=== PATIENT | male | born 1955 | race Caucasian/White ===

== ENCOUNTER → 2020-08-13 | Outpatient (CLI) | payer OTHER ==
[~2020-08-13] MED LIST: ASPIRIN EC325 M1 PO; PRINIVIL20 MG PO; SIMVASTATIN40 MG PO; SYNTHROID50 MCG PO
[2020-08-13 08:36] LABS: CREATININE 1.2 mg/dL (0.7-1.3)
== END ==
LOC: CAT 07:57
PROVIDERS: ATTEND Surgery Vascular Surgery
DX: I65.29 Occlusion and stenosis of unspecified carotid artery (principal)

== ENCOUNTER → 2020-09-26 | Outpatient (CLI) | payer OTHER ==
[~2020-09-26] MED LIST changes: +AVAPRO 150 MG150 M1 PO; +CARVEDILOL12.5 MG PO; +IMBRUVICA140 MG PO; +PLAVIX 75 MG TA75 MG PO; +ROSUVASTATIN CA40 MG PO
== END ==
LOC: SJCVCIMAG 09:48
PROVIDERS: ATTEND Internal Medicine Cardiovascular Disease
DX: I49.3 Ventricular premature depolarization (principal); I25.10 Atherosclerotic heart disease of native coronary artery without angina pectoris; I73.9 Peripheral vascular disease, unspecified; E78.5 Hyperlipidemia, unspecified; I10 Essential (primary) hypertension; R06.00 Dyspnea, unspecified; R53.83 Other fatigue; F17.200 Nicotine dependence, unspecified, uncomplicated; Z86.73 Personal history of transient ischemic attack (TIA), and cerebral infarction without residual deficits

== ENCOUNTER → 2020-09-27 | Outpatient (CLI) | payer OTHER ==
[~2020-09-27] VITALS: Ht 167.6 cm; Wt 71.7 kg
[2020-09-27 07:55] VITALS: BP 183/91
[2020-09-27 08:03] LABS: HEMATOCRIT 44.6 % (42.0-52.0); HEMOGLOBIN 14.9 gm/dL (14.0-18.0); MCH 29.9 pg (26.0-34.0); MCHC 33.3 g/dL (28.0-37.0); MCV 89.8 fL (80.0-100.0); RBC 4.97 mil/uL (4.50-6.00); RDW 13.1 % (10.5-14.5); WBC 7.9 thou/uL (4.0-11.0)
[2020-09-27 08:21] LABS: CALCIUM 9.1 mg/dL (8.5-10.1); CREATININE 1.1 mg/dL (0.7-1.3); POTASSIUM 4.2 mmol/L (3.5-5.1)
--- NOTE | 2020-10-08 16:24 | CATHLAB ---
[facility] [place] [address] INVASIVE PROCEDURE REPORT Name: MAX BRYAN Room #: REG MAYELA YoSaranya#: [id number] Admission: 09/27/20 Attend Phys: Armando Ngo MD Discharge: Date of : 55 Report #: [id number] THIS REPORT FOR: cc: Justus Holder Brad DO Mancuso, Gerald M. MD [facility] ~ APPROVED REPORT Study performed: 09/27/2020 08:11:07 Patient Details Patient Status: Out-Patient Room #: The patient is a 64 year-old male Event Personnel Marcos Lopes Explosive Man, Angela Kwok RTR, GROUP ART SUPERVISOR Monitor, Chayito Jackson Jones, Jessica RN RN, Trip Helms RN metallurgy laboratory technician Performed Art Access - R femoral artery* Left Heart Cath w/or w/o Coronaries [id number] [facility] Hemostasis w/ Mynx Indication Positive stress test Procedure Narrative A SHEATH BRITE-TIP 6F X 11CM ([id number]) sheath was inserted into the RFA^. Coronary angiography was performed using coronary diagnostic catheters. The right coronary system was accessed and visualized with a JR4 catheter. The left coronary system was accessed and visualized with a JL4 catheter. The left ventricle was accessed and visualized with a pigtail catheter. Left ventricular/Aortic Valve gradient assessed via catheter pullback. Left ventriculogram was performed in 30 degree projection. Closure device was deployed with a 6 Fr 6/7F MynxGrip. The patient tolerated the procedure well and there were no complications associated with the procedure. There was no hematoma. Intraoperative Conscious Sedation Sedation start time: 09:10 Case end Time: 11:07 Conscious sedation is a combined total for carotid procedure and left heart cath. [facility] [address] [place] [address] INVASIVE PROCEDURE REPORT Name: BRADGENMAX Adolfo Room #: REG [facility].#: [id number] Admission: 09/27/20 Attend Phys: Armando Ngo, Discharge: Date of : 55 Report #: [id number] Fluoro time and dose is a combined total for carotid procedure and left heart cath. Contrast is a combined total for carotid procedure and left heart cath. Fluoro Time: 8.40 minutes Dose: DAP 82455.50 cGycm2 929 mGy Contrast Type and Amount: Omnipaque 273 ml Hemodynamics The aortic pressure is 149/70 mmHg with a mean of 64 mmHg. The left ventricular pressure is 123/9 mmHg with a mean of mmHg. The left ventricular end diastolic pressure is 13 mmHg. Conclusion #1. Normal left jugular size and systolic function EF 55% #2 left main mild disease giving rise to LAD and circumflex. #3 LAD is proximal calcification mild irregularity this wraps around the apex no high-grade occlusive disease. #4 circumflex OM is nondominant there is distal circumflex disease with a small branch totally occluded there is some collateral filling from the left system to the PDA from codominant right coronary artery. #5 codominant right coronary presumably has some distal occlusion of the PDA or this was a vessel that occluded off of the circumflex artery with some collateral filling there also may be some evidence of a fistula from this remnant of the right coronary artery. Recommendation plan to do aggressive risk factor modification. See peripheral angiogram of carotid continue aggressive risk factor modification no indication for coronary intervention. <ELECTRONICALLY SIGNED> By: Marcos Lopes MD, FACC 10/08/20 1624 1624 1624 Marcos Lopes MD, FACC /INF
== END | disposition home or self-care (01) ==
LOC: CATH 07:07
PROVIDERS: ATTEND Nuclear Medicine Nuclear Cardiology
DX: R94.39 Abnormal result of other cardiovascular function study (principal); I25.10 Atherosclerotic heart disease of native coronary artery without angina pectoris; I65.23 Occlusion and stenosis of bilateral carotid arteries; I70.1 Atherosclerosis of renal artery; I10 Essential (primary) hypertension; I25.2 Old myocardial infarction; E03.9 Hypothyroidism, unspecified; E78.5 Hyperlipidemia, unspecified; F17.210 Nicotine dependence, cigarettes, uncomplicated; Z98.890 Other specified postprocedural states; Z79.899 Other long term (current) drug therapy; Z86.73 Personal history of transient ischemic attack (TIA), and cerebral infarction without residual deficits; Z82.49 Family history of ischemic heart disease and other diseases of the circulatory system; Z85.6 Personal history of leukemia